=== PATIENT | male | born 1985 | race Caucasian/White ===

== ENCOUNTER 2021-04-01 19:28 | Emergency (ER) | payer MEDICAID ==
[~2021-04-01] VITALS: Ht 180.3 cm; Wt 122.5 kg
[~2021-04-01 19:28] MED LIST: ALBU0.084; CLOP75TA28; XANAX
[2021-04-02 02:00] VITALS: BP 125/75
[2021-04-02] MEDS ORDERED: KETOROLAC TROMETH 60MG/2ML VIAL IM ONE (02:15)
== END 2021-04-02 02:45 | disposition home or self-care (01) ==
LOC: EDBD 19:28 → ER 19:31
DX: S92.324A Nondisplaced fracture of second metatarsal bone, right foot, initial encounter for closed fracture (principal); S13.8XXA Sprain of joints and ligaments of other parts of neck, initial encounter; S60.512A Abrasion of left hand, initial encounter; R07.89 Other chest pain; E66.9 Obesity, unspecified; R51.9 Headache, unspecified; F41.9 Anxiety disorder, unspecified; J45.909 Unspecified asthma, uncomplicated; E78.5 Hyperlipidemia, unspecified; Z68.37 Body mass index [BMI] 37.0-37.9, adult; Z79.899 Other long term (current) drug therapy; Z90.49 Acquired absence of other specified parts of digestive tract; V49.49XA Driver injured in collision with other motor vehicles in traffic accident, initial encounter; Y93.89 Activity, other specified; Y92.488 Other paved roadways as the place of occurrence of the external cause; Y99.8 Other external cause status
CPT/HCPCS: 29515; 70450; 71045; 71250; 72125; 73130; 73630; 74176; 96372; 99285; J1885